=== PATIENT | female | born 1940 | race Caucasian/White ===

== ENCOUNTER 2021-09-29 14:14 | Emergency (ER) | payer OTHER ==
[~2021-09-29] VITALS: Ht 154.9 cm; Wt 47.6 kg
[2021-09-29] MEDS ORDERED: TRAZODONE HCL50 MG (14:40)
== END 2021-09-29 19:52 | disposition home or self-care (01) ==
LOC: ER 14:14
DX: N39.0 Urinary tract infection, site not specified (principal); E86.0 Dehydration; Z20.822 Contact with and (suspected) exposure to COVID-19